=== PATIENT | male | born 1945 | race Caucasian/White ===

== ENCOUNTER → 2017-04-25 | Outpatient (CLI) | payer MEDICARE, OTHER ==
[2017-04-25 10:48] LABS: ANION GAP 12 (6-14); BLOOD UREA NITROGEN 41 mg/dL (8-26); CALCIUM 10.1 mg/dL (8.5-10.1); CARBON DIOXIDE 31 mmol/L (21-32); CHLORIDE 92 mmol/L (98-107); CREATININE 1.5 mg/dL (0.7-1.3); GFR 46.3; GLUCOSE 169 mg/dL (70-99); MAGNESIUM 1.9 mg/dL (1.8-2.4); POTASSIUM 3.4 mmol/L (3.5-5.1); SODIUM 135 mmol/L (136-145)
== END | disposition home or self-care (01) ==
LOC: LAB 09:44
DX: Z51.81 Encounter for therapeutic drug level monitoring (principal); Z79.01 Long term (current) use of anticoagulants
CPT/HCPCS: 36415; 80048; 83735; 84550

== ENCOUNTER → 2017-06-10 | Outpatient (CLI) | payer MEDICARE, OTHER ==
[2017-06-10 08:33] LABS: ANION GAP 11 (6-14); BLOOD UREA NITROGEN 40 mg/dL (8-26); CALCIUM 9.9 mg/dL (8.5-10.1); CARBON DIOXIDE 27 mmol/L (21-32); CHLORIDE 97 mmol/L (98-107); CREATININE 1.6 mg/dL (0.7-1.3); GFR 42.9; GLUCOSE 141 mg/dL (70-99); MAGNESIUM 2.1 mg/dL (1.8-2.4); POTASSIUM 3.6 mmol/L (3.5-5.1); SODIUM 135 mmol/L (136-145)
[2017-06-10 15:29] LABS: HEMOGLOBIN A1C 6.9 % (4.8-5.6)
== END | disposition home or self-care (01) ==
LOC: LAB 07:54
DX: E11.9 Type 2 diabetes mellitus without complications (principal); N18.9 Chronic kidney disease, unspecified; E87.6 Hypokalemia; M10.9 Gout, unspecified
CPT/HCPCS: 36415; 80048; 83036; 83735

== ENCOUNTER → 2017-10-25 | Outpatient (CLI) | payer MEDICARE | END | disposition home or self-care (01) | LOC: RAD 09:09 | DX: M48.07 Spinal stenosis, lumbosacral region (principal); E11.9 Type 2 diabetes mellitus without complications | CPT/HCPCS: 72100 ==

== ENCOUNTER → 2017-11-08 | Outpatient (CLI) | payer MEDICARE | END | disposition home or self-care (01) | LOC: RAD 13:19 | DX: J18.9 Pneumonia, unspecified organism (principal); J90 Pleural effusion, not elsewhere classified; E11.9 Type 2 diabetes mellitus without complications; N18.9 Chronic kidney disease, unspecified; I25.10 Atherosclerotic heart disease of native coronary artery without angina pectoris; E87.6 Hypokalemia; I48.0 Paroxysmal atrial fibrillation; Z79.01 Long term (current) use of anticoagulants | CPT/HCPCS: 71046 ==

== ENCOUNTER 2017-12-09 20:22 | Emergency (ER) | payer MEDICARE ==
[~2017-12-09] VITALS: Ht 180.3 cm; Wt 96.6 kg
[2017-12-09] MEDS ORDERED: IV NORMAL SALINE 1000ML BAG 1,000 ML IV SCH (20:53)
[2017-12-09] MEDS ORDERED: fentaNYL PF VIAL 100 MCG/2 ML VIAL IV PRN (21:00)
[2017-12-09 21:08] LABS: BASO % 0 % (0-3); EOS # 0.2 x10^3/uL (0.0-0.7); EOS % 1 % (0-3); HEMATOCRIT 50.7 % (39.0-53.0); HEMOGLOBIN 17.1 g/dL (13.0-17.5); LYMPH # 0.6 x10^3/uL (1.0-4.8); LYMPH % 5 % (24-48); MEAN CORPUSCULAR HEMOGLOBIN 32 pg (25-35); MEAN CORPUSCULAR HGB CONC 34 g/dL (31-37); MEAN CORPUSCULAR VOLUME 95 fL (79-100); MONO # 1.1 x10^3/uL (0.0-1.1); MONO % 10 % (0-9); NEUT # 9.8 x10^3uL (1.8-7.7); NEUT % 84 % (31-73); PLATELET COUNT 287 x10^3/uL (140-400); RED BLOOD COUNT 5.32 x10^6/uL (4.30-5.70); RED CELL DISTRIBUTION WIDTH 15.2 % (11.5-14.5); WHITE BLOOD COUNT 11.7 x10^3/uL (4.0-11.0)
[2017-12-09 21:21] LABS: CREATININE 1.3 mg/dL (0.7-1.3); GFR 54.6; POTASSIUM 3.5 mmol/L (3.5-5.1)
--- NOTE | 2017-12-09 21:23 | PHYS DOC ---
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 Patient states that he was not able to see anything out of his eye yesterday. He continues to have complete loss of vision from that eye. He was seen by his primary provider yesterday and again today and his primary provider had done a CT scan and had sent patient here for treatment of preseptal cellulitis. Patient indicates that symptoms started initially on Tuesday and thought that he had pinkeye. He states that yesterday was the first day that he had noted loss of vision. Patient rates his pain to be an 8 out of 10. He denies any fever, nausea or vomiting. He states that he was started on oral antibiotics a few days ago for what was thought to be a sinus infection. Review of Systems Review of Systems Constitutional: Denies fever or chills [] Eyes: Reports right eye pain, redness and complete loss of vision of right eye[] HENT: Complains of sinus pain and drainage[] Respiratory: Denies shortness of breath [] Cardiovascular: Denies chest pain[] GI: Denies abdominal pain, nausea, vomiting or diarrhea [] Integument: Complains of redness and swelling around right periorbital tissues.[ ] Neurologic: Complains of headache[] All other systems were reviewed and found to be within normal limits, except as documented in this note. Current Medications Current Medications Current Medications Medications (Trade) Dose Ordered Sig/Bogdan Start Time Stop Time Status Last Admin Dose Admin Fentanyl Citrate (Fentanyl 2ml Vial) 50 mcg PRN Q15MIN PRN 12/09/17 21:00 12/10/17 20:59 12/09/17 21:13 50 MCG Levofloxacin/ Dextrose 150 ml @ 100 mls/hr 1X ONCE 12/09/17 21:15 12/09/17 22:44 12/09/17 21:14 100 MLS/HR Sodium Chloride 1,000 ml @ 100 mls/hr Q10H 12/09/17 20:53 12/10/17 06:52 12/09/17 21:10 100 MLS/HR Allergies Allergies Allergies Coded Allergies Type Severity Reaction Last Updated Verified No Known Drug Allergies 04/14/14 No Physical Exam Physical Exam Constitutional: Well developed, well nourished, in mild distress, non-toxic appearance. [] HENT: Normocephalic, atraumatic, bilateral external ears normal, oropharynx moist, no oral exudates, nose normal. [] Eyes: There is periorbital soft tissue swelling around the right eye with erythema. There is slight proptosis noted. Examination of the eye demonstrates significant mucosal edema and redness of the sclera and area of cornea demonstrates swelling and almost complete white out. Unable to definitively identify the pupil. [] Neck: Normal range of motion, no tenderness, supple, no stridor. [] Cardiovascular:Heart rate regular rhythm [] Lungs & Thorax: Bilateral breath sounds clear to auscultation [] Abdomen: Bowel sounds normal, soft. [] Skin: There is erythema and soft tissue swelling around the periorbital tissues of the right eye. [] Extremities: No tenderness, no cyanosis, no clubbing, with lower extremity edema noted bilaterally. [] Neurologic: Alert and oriented X 3. [] Current Patient Data Vital Signs Vital Signs Date Time Temp Pulse Resp B/P (MAP) Pulse Ox O2 Delivery O2 Flow Rate FiO2 12/09/17 21:13 15 95 Room Air 12/09/17 20:22 98.2 67 136/70 (92) 98.2 Lab Values Laboratory Tests Test 12/09/17 20:53 White Blood Count 11.7 x10^3/uL (4.0-11.0) H Red Blood Count 5.32 x10^6/uL (4.30-5.70) Hemoglobin 17.1 g/dL (13.0-17.5) Hematocrit 50.7 % (39.0-53.0) Mean Corpuscular Volume 95 fL (79-100) Mean Corpuscular Hemoglobin 32 pg (25-35) Mean Corpuscular Hemoglobin Concent 34 g/dL (31-37) Red Cell Distribution Width 15.2 % (11.5-14.5) H Platelet Count 287 x10^3/uL (140-400) Neutrophils (%) (Auto) 84 % (31-73) H Lymphocytes (%) (Auto) 5 % (24-48) L Monocytes (%) (Auto) 10 % (0-9) H Eosinophils (%) (Auto) 1 % (0-3) Basophils (%) (Auto) 0 % (0-3) Neutrophils # (Auto) 9.8 x10^3uL (1.8-7.7) H Lymphocytes # (Auto) 0.6 x10^3/uL (1.0-4.8) L Monocytes # (Auto) 1.1 x10^3/uL (0.0-1.1) Eosinophils # (Auto) 0.2 x10^3/uL (0.0-0.7) Basophils # (Auto) 0.0 x10^3/uL (0.0-0.2) Platelet Estimate Pending Sodium Level 135 mmol/L (136-145) L Potassium Level 3.5 mmol/L (3.5-5.1) Chloride Level 101 mmol/L (98-107) Carbon Dioxide Level 28 mmol/L (21-32) Anion Gap 6 (6-14) Blood Urea Nitrogen 31 mg/dL (8-26) H Creatinine 1.3 mg/dL (0.7-1.3) Estimated GFR (Cockcroft-Gault) 54.6 BUN/Creatinine Ratio 24 (6-20) H Glucose Level 65 mg/dL (70-99) L Calcium Level 9.0 mg/dL (8.5-10.1) Total Bilirubin 0.4 mg/dL (0.2-1.0) Aspartate Amino Transferase (AST) 25 U/L (15-37) Alanine Aminotransferase (ALT) 21 U/L (16-63) Alkaline Phosphatase 98 U/L (46-116) Total Protein 7.1 g/dL (6.4-8.2) Albumin 3.0 g/dL (3.4-5.0) L Albumin/Globulin Ratio 0.7 (1.0-1.7) L Laboratory Tests 12/09/17 20:53 Laboratory Tests 12/09/17 20:53 EKG EKG [] Radiology/Procedures Radiology/Procedures [] Course & Med Decision Making Course & Med Decision Making Pertinent Labs and Imaging studies reviewed. (See chart for details) Patient's case was discussed with Dr. Pickering, on-call for ophthalmology. He is recommending transfer to . transfer Center was contacted and patient is being accepted by Dr. Pierre, with ophthalmology service. Roberta Disclaimer Dragon Disclaimer This electronic medical record was generated, in whole or in part, using a voice recognition dictation system. Departure Departure Impression: Primary Impression: Endophthalmitis, right eye Disposition: 02 TRANSFER [facility] Condition: GUARDED Referrals: KASSANDRA LLAMAS DO (PCP) VALERY ROGERS Jr., DO Dec 09, 2017 21:23
[2017-12-09 21:26] LABS: ALBUMIN/GLOBULIN RATIO 0.7 (1.0-1.7); TOTAL BILIRUBIN 0.4 mg/dL (0.2-1.0); TOTAL PROTEIN 7.1 g/dL (6.4-8.2)
[2017-12-09 21:52] LABS: % EOS 2 % (0-5); % LYMPHS 12 % (24-48); % MONOS 5 % (0-10); % SEGS 81 % (35-66)
[2017-12-09 21:53] LABS: PLT ESTIMATE ADEQUATE (ADEQUATE)
[2017-12-09 22:00] VITALS: BP 121/70
[2017-12-09] MEDS ORDERED: DEXTROSE 50% 25 GM / 50ML DISP.SYRIN. IV ONE (22:00)
== END 2017-12-09 22:24 | disposition short-term general hospital (02) ==
LOC: ER 20:22
DX: H44.001 Unspecified purulent endophthalmitis, right eye (principal); R51 Headache; I48.91 Unspecified atrial fibrillation; E11.9 Type 2 diabetes mellitus without complications
CPT/HCPCS: 36415; 80053; 85007; 85025; 87040; 96365; 96375; 99285; J1956; J3010; J7030; J7042

== ENCOUNTER → 2017-12-09 | Outpatient (CLI) | payer MEDICARE ==
[2014-04-16 14:56] VITALS: BP 104/70
[~2017-12-09] MED LIST: DILT180C2 PO; FURO80TA72 PO; LEVO500T59 PO; POTA20TA12 PO
--- NOTE | 2017-12-09 16:43 | RAD ---
CT of the paranasal sinuses without contrast, 12/09/2017: HISTORY: Severe right facial pain and swelling Noncontrast scans were obtained with multiplanar reconstructions produced. There is mucosal thickening in the maxillary, ethmoid and sphenoid sinuses bilaterally. Air-fluid levels are present in both maxillary sinuses compatible with acute sinusitis. There is mild subcutaneous edema in the right cheek extending anteriorly over the right side. The absence of trauma, the appearance suggests nonspecific inflammation. No discrete fluid collection is seen to suggest abscess. The globes and orbital contents are otherwise unremarkable. IMPRESSION: 1. Moderate bilateral paranasal sinusitis with free fluid in both maxillary sinuses. 2. Mild subcutaneous edema over the right cheek extending along the anterior aspect of the right eye, compatible with preseptal cellulitis. PQRS Compliance Statement: One or more of the following individualized dose reduction techniques were utilized for this examination: 1. Automated exposure control 2. Adjustment of the mA and/or kV according to patient size 3. Use of iterative reconstruction technique Electronically signed by: Josue Park MD (12/09/2017 4:40 PM) [facility]
== END | disposition home or self-care (01) ==
LOC: CT 10:40
PROVIDERS: ATTEND Internal Medicine
DX: J32.8 Other chronic sinusitis (principal); E87.6 Hypokalemia; E11.22 Type 2 diabetes mellitus with diabetic chronic kidney disease; N18.9 Chronic kidney disease, unspecified; I48.0 Paroxysmal atrial fibrillation; I25.10 Atherosclerotic heart disease of native coronary artery without angina pectoris; R60.0 Localized edema
CPT/HCPCS: 70486

== ENCOUNTER 2018-06-11 21:42 | Emergency (ER) | payer MEDICARE ==
[~2018-06-11] VITALS: Ht 180.3 cm; Wt 96.6 kg
[2018-06-11 22:49] LABS: BILIRUBIN,URINE NEGATIVE (NEG); CLARITY,URINE CLEAR; COLOR,URINE YELLOW; NITRITE,URINE NEGATIVE (NEG); PROTEIN,URINE >=300 mg/dL (NEG-TRACE); UROBILINOGEN,URINE 0.2 mg/dL (0.2 mg/dL)
--- NOTE | 2018-06-11 22:55 | PHYS DOC ---
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 Pt states he was seen by his PCP last and diagnosed with a UTI. He was prescribed cipro and pyridium. Pt states today he noticed that only small amounts of urine were draining with urination. PT reports urgency, frequency, and continued burning with urination. He denies any fever, nausea, vomiting, or diarrhea. He denies any back pain. He denies any irregular penile discharge or testicular pain. Pt states his abdomen feels distended. (ADRIANA MCINTYRE APRN) Review of Systems Review of Systems Constitutional: Denies fever or chills [] HENT: Denies nasal congestion or sore throat [] Respiratory: Denies cough or shortness of breath [] Cardiovascular: No additional information not addressed in HPI [] GI: Denies abdominal pain, nausea, vomiting, or diarrhea; see HPI : See HPI Musculoskeletal: Denies back pain or joint pain [] Integument: Denies rash or skin lesions [] Neurologic: Denies headache, focal weakness or sensory changes [] Endocrine: reports blood sugars around 120 and polyuria complete systems were reviewed and found to be within normal limits, except as documented in this note. (ADRIANA MCINTYRE APRN) Current Medications Current Medications Current Medications Medications (Trade) Dose Ordered Sig/Bogdan Start Time Stop Time Status Last Admin Dose Admin Oxybutynin Chloride (Ditropan) 5 mg 1X ONCE 06/12/18 00:00 06/12/18 00:01 DC 06/12/18 00:09 5 MG Potassium Chloride (Klor-Con) 40 meq 1X ONCE 06/12/18 00:00 06/12/18 00:01 DC 06/12/18 00:09 40 MEQ (KAREY MCCABE MD) Allergies Allergies Allergies Coded Allergies Type Severity Reaction Last Updated Verified No Known Drug Allergies 04/14/14 No (KAREY MCCABE MD) Physical Exam Physical Exam Constitutional: Well developed, well nourished, no acute distress, non-toxic appearance. [] HENT: Normocephalic, atraumatic, bilateral external ears normal, nose normal. [] Eyes: PERRLA, conjunctiva normal, no discharge. [] Neck: Normal range of motion, no stridor. [] Cardiovascular:Heart rate regular rhythm, no murmur coarse in all maxwell, no increased work of breathing or retractions [] Abdomen: Bowel sounds normal, soft, no tenderness, no masses, no pulsatile masses. [] Skin: Warm, dry, no erythema, no rash. [] Back: No CVA tenderness. [] Extremities: No cyanosis, ROM intact, Neurologic: Alert and oriented X 3, normal motor function, normal sensory function, no focal deficits noted. [] Psychologic: Affect normal, judgement normal, mood normal. [] (ADRIANA MCINTYRE APRN) Current Patient Data Vital Signs Vital Signs Date Time Temp Pulse Resp B/P (MAP) Pulse Ox O2 Delivery O2 Flow Rate FiO2 06/11/18 23:30 80 18 06/11/18 23:00 92 06/11/18 22:00 98.2 120/86 (97) Room Air 98.2 (KAREY MCCABE MD) Lab Values Laboratory Tests Test 06/11/18 22:20 06/11/18 23:11 Urine Collection Type Unknown Urine Color Yellow Urine Clarity Clear Urine pH 6.0 Urine Specific Painter 1.025 Urine Protein >=300 mg/dL (NEG-TRACE) Urine Glucose (UA) >=1000 mg/dL (NEG) Urine Ketones (Stick) Negative mg/dL (NEG) Urine Blood Large (NEG) Urine Nitrite Negative (NEG) Urine Bilirubin Negative (NEG) Urine Urobilinogen Dipstick 0.2 mg/dL (0.2 mg/dL) Urine Leukocyte Esterase Negative (NEG) Urine RBC 20-40 /HPF (0-2) Urine WBC 5-10 /HPF (0-4) Urine Squamous Epithelial Cells Few /LPF Urine Bacteria 0 /HPF (0-FEW) Urine Hyaline Casts Occasional /HPF Urine Mucus Slight /LPF White Blood Count 11.2 x10^3/uL (4.0-11.0) H Red Blood Count 5.61 x10^6/uL (4.30-5.70) Hemoglobin 17.6 g/dL (13.0-17.5) H Hematocrit 52.4 % (39.0-53.0) Mean Corpuscular Volume 93 fL (79-100) Mean Corpuscular Hemoglobin 31 pg (25-35) Mean Corpuscular Hemoglobin Concent 34 g/dL (31-37) Red Cell Distribution Width 15.4 % (11.5-14.5) H Platelet Count 287 x10^3/uL (140-400) Neutrophils (%) (Auto) 78 % (31-73) H Lymphocytes (%) (Auto) 7 % (24-48) L Monocytes (%) (Auto) 11 % (0-9) H Eosinophils (%) (Auto) 3 % (0-3) Basophils (%) (Auto) 1 % (0-3) Neutrophils # (Auto) 8.8 x10^3uL (1.8-7.7) H Lymphocytes # (Auto) 0.8 x10^3/uL (1.0-4.8) L Monocytes # (Auto) 1.2 x10^3/uL (0.0-1.1) H Eosinophils # (Auto) 0.4 x10^3/uL (0.0-0.7) Basophils # (Auto) 0.1 x10^3/uL (0.0-0.2) Sodium Level 139 mmol/L (136-145) Potassium Level 2.8 mmol/L (3.5-5.1) *L Chloride Level 99 mmol/L (98-107) Carbon Dioxide Level 33 mmol/L (21-32) H Anion Gap 7 (6-14) Blood Urea Nitrogen 29 mg/dL (8-26) H Creatinine 1.2 mg/dL (0.7-1.3) Estimated GFR (Cockcroft-Gault) 59.7 BUN/Creatinine Ratio 24 (6-20) H Glucose Level 139 mg/dL (70-99) H Calcium Level 8.8 mg/dL (8.5-10.1) Total Bilirubin 0.5 mg/dL (0.2-1.0) Aspartate Amino Transferase (AST) 16 U/L (15-37) Alanine Aminotransferase (ALT) 16 U/L (16-63) Alkaline Phosphatase 116 U/L (46-116) Total Protein 6.9 g/dL (6.4-8.2) Albumin 2.8 g/dL (3.4-5.0) L Albumin/Globulin Ratio 0.7 (1.0-1.7) L Laboratory Tests 06/11/18 23:11 Laboratory Tests 06/11/18 23:11 (KAREY MCCABE MD) Lab Values Laboratory Tests Test 06/11/18 22:20 06/11/18 23:11 Urine Collection Type Unknown Urine Color Yellow Urine Clarity Clear Urine pH 6.0 Urine Specific Painter 1.025 Urine Protein >=300 mg/dL (NEG-TRACE) Urine Glucose (UA) >=1000 mg/dL (NEG) Urine Ketones (Stick) Negative mg/dL (NEG) Urine Blood Large (NEG) Urine Nitrite Negative (NEG) Urine Bilirubin Negative (NEG) Urine Urobilinogen Dipstick 0.2 mg/dL (0.2 mg/dL) Urine Leukocyte Esterase Negative (NEG) Urine RBC 20-40 /HPF (0-2) Urine WBC 5-10 /HPF (0-4) Urine Squamous Epithelial Cells Few /LPF Urine Bacteria 0 /HPF (0-FEW) Urine Hyaline Casts Occasional /HPF Urine Mucus Slight /LPF White Blood Count 11.2 x10^3/uL (4.0-11.0) H Red Blood Count 5.61 x10^6/uL (4.30-5.70) Hemoglobin 17.6 g/dL (13.0-17.5) H Hematocrit 52.4 % (39.0-53.0) Mean Corpuscular Volume 93 fL (79-100) Mean Corpuscular Hemoglobin 31 pg (25-35) Mean Corpuscular Hemoglobin Concent 34 g/dL (31-37) Red Cell Distribution Width 15.4 % (11.5-14.5) H Platelet Count 287 x10^3/uL (140-400) Neutrophils (%) (Auto) 78 % (31-73) H Lymphocytes (%) (Auto) 7 % (24-48) L Monocytes (%) (Auto) 11 % (0-9) H Eosinophils (%) (Auto) 3 % (0-3) Basophils (%) (Auto) 1 % (0-3) Neutrophils # (Auto) 8.8 x10^3uL (1.8-7.7) H Lymphocytes # (Auto) 0.8 x10^3/uL (1.0-4.8) L Monocytes # (Auto) 1.2 x10^3/uL (0.0-1.1) H Eosinophils # (Auto) 0.4 x10^3/uL (0.0-0.7) Basophils # (Auto) 0.1 x10^3/uL (0.0-0.2) Sodium Level 139 mmol/L (136-145) Potassium Level 2.8 mmol/L (3.5-5.1) *L Chloride Level 99 mmol/L (98-107) Carbon Dioxide Level 33 mmol/L (21-32) H Anion Gap 7 (6-14) Blood Urea Nitrogen 29 mg/dL (8-26) H Creatinine 1.2 mg/dL (0.7-1.3) Estimated GFR (Cockcroft-Gault) 59.7 BUN/Creatinine Ratio 24 (6-20) H Glucose Level 139 mg/dL (70-99) H Calcium Level 8.8 mg/dL (8.5-10.1) Total Bilirubin 0.5 mg/dL (0.2-1.0) Aspartate Amino Transferase (AST) 16 U/L (15-37) Alanine Aminotransferase (ALT) 16 U/L (16-63) Alkaline Phosphatase 116 U/L (46-116) Total Protein 6.9 g/dL (6.4-8.2) Albumin 2.8 g/dL (3.4-5.0) L Albumin/Globulin Ratio 0.7 (1.0-1.7) L Laboratory Tests 06/11/18 23:11 Laboratory Tests 06/11/18 23:11 (ADRIANA MCINTYRE APRN) EKG EKG [] (ADRIANA MCINTYRE APRN) Radiology/Procedures Radiology/Procedures post void residual 112 ml[] (ADRIANA MCINTYRE APRN) Course & Med Decision Making Course & Med Decision Making Pertinent Labs and Imaging studies reviewed. (See chart for details) [] (ADRIANA MCINTYRE APRN) Course & Med Decision Making Staff Physician Addendum: I was working in the ER during the course of this patient's visit. I was available for consultation as needed, but I was not directly involved in the care of this patient. bladder scan 111 (KAREY MCCABE MD) Dragon Disclaimer Dragon Disclaimer This electronic medical record was generated, in whole or in part, using a voice recognition dictation system. (ADRIANA MCINTYRE APRN) Departure Departure Impression: Primary Impression: UTI (urinary tract infection) Additional Impressions: Dysuria Hypokalemia Disposition: HOME, SELF-CARE Condition: STABLE Referrals: KASSANDRA LLAMAS DO (PCP) Patient Instructions: Hypokalemia-Brief, Urinary Tract Infection, [id number] Additional Instructions: Fill prescription(s) and use as directed. Avoid bladder irritants such as caffeine, carbonation, and spicy foods. Increase clear fluids. Take your potassium as prescribed, today it was 2.8 in the ER. Follow up with your primary care doctor this week for recheck of your Potassium, return to the ER if symptoms worsen. Scripts Oxybutynin Chloride (DITROPAN XL) 5 Mg Tab.er.24 1 TAB PO DAILY for 14 Days, #14 TAB 0 Refills Prov: ADRIANA MCINTYRE APRN 06/12/18 Problem Qualifiers Primary Impression: UTI (urinary tract infection) Urinary tract infection type: site unspecified Hematuria presence: with hematuria Qualified Codes: N39.0 - Urinary tract infection, site not specified ; R31.9 - Hematuria, unspecified ADRIANA MCINTYRE APRN Jun 11, 2018 22:55 KAREY MCCABE MD Jun 12, 2018 03:42
[2018-06-11 23:03] LABS: RBC,URINE 20-40 /HPF (0-2)
[2018-06-11 23:04] LABS: BACTERIA,URINE 0 /HPF (0-FEW); HYALINE CASTS, URINE OCCASIONAL /HPF; SQUAMOUS EPITHELIAL CELL,UR FEW /LPF
[2018-06-11 23:22] LABS: BASO # 0.1 x10^3/uL (0.0-0.2); BASO % 1 % (0-3); EOS # 0.4 x10^3/uL (0.0-0.7); EOS % 3 % (0-3); HEMATOCRIT 52.4 % (39.0-53.0); HEMOGLOBIN 17.6 g/dL (13.0-17.5); LYMPH # 0.8 x10^3/uL (1.0-4.8); LYMPH % 7 % (24-48); MEAN CORPUSCULAR HEMOGLOBIN 31 pg (25-35); MEAN CORPUSCULAR HGB CONC 34 g/dL (31-37); MEAN CORPUSCULAR VOLUME 93 fL (79-100); MONO # 1.2 x10^3/uL (0.0-1.1); MONO % 11 % (0-9); NEUT # 8.8 x10^3uL (1.8-7.7); NEUT % 78 % (31-73); PLATELET COUNT 287 x10^3/uL (140-400); RED BLOOD COUNT 5.61 x10^6/uL (4.30-5.70); RED CELL DISTRIBUTION WIDTH 15.4 % (11.5-14.5); WHITE BLOOD COUNT 11.2 x10^3/uL (4.0-11.0)
[2018-06-11 23:30] VITALS: BP 133/65
[2018-06-11 23:36] LABS: ALBUMIN 2.8 g/dL (3.4-5.0); ALBUMIN/GLOBULIN RATIO 0.7 (1.0-1.7); CALCIUM 8.8 mg/dL (8.5-10.1); CREATININE 1.2 mg/dL (0.7-1.3); GFR 59.7; TOTAL BILIRUBIN 0.5 mg/dL (0.2-1.0); TOTAL PROTEIN 6.9 g/dL (6.4-8.2)
[2018-06-11 23:38] LABS: POTASSIUM 2.8 mmol/L (3.5-5.1)
[2018-06-12] MEDS ORDERED: OXYBUTYNIN CHLORIDE 5 MG TABLET PO ONE
[2018-06-12] MEDS ORDERED: POTASSIUM CHLORIDE 20 MEQ TABLET.ER. PO ONE
[2018-06-12] MEDS ORDERED: OXYB5TAB33 PO (00:02)
== END 2018-06-12 00:15 | disposition home or self-care (01) ==
LOC: ER 21:42
DX: N39.0 Urinary tract infection, site not specified (principal); E87.6 Hypokalemia; I48.91 Unspecified atrial fibrillation; E11.9 Type 2 diabetes mellitus without complications; Z90.49 Acquired absence of other specified parts of digestive tract
CPT/HCPCS: 36415; 80053; 81001; 85025; 87086; 99283

== ENCOUNTER → 2019-01-26 | Outpatient (CLI) | payer MEDICARE ==
[~2019-01-26] MED LIST changes: +OXYB5TAB33 PO
--- NOTE | 2019-01-26 15:16 | RAD ---
EXAM: CT Chest without IV contrast CLINICAL HISTORY: Pleural effusion, infiltrates COMPARISON: 02/12/2016 TECHNIQUE: CT of the chest without intravenous contrast. Axial, coronal and sagittal reformatted images were generated. ---PQRS compliance statement - One or more of the following individualized dose reduction techniques were utilized for this study: 1. Automated exposure control 2. Adjustment of the mA and/or kV according to patient size 3. Use of iterative reconstruction technique--- FINDINGS: Lack of intravenous contrast limits evaluation of solid organs, vasculature, and lymph nodes. Chest: Heart is not enlarged. No pericardial effusion. Small left pleural effusion. Moderate right pleural effusion. No pneumothorax. Linear opacities in the left lingula and lower lobe likely scarring/atelectasis. 4 mm right upper lobe lung nodule (series 2 image 16) is stable to 02/12/2016. 8mm pleural-based lung nodule in the lingula (series 3 image 32) is seen. Bilateral gynecomastia. No mediastinal or hilar lymphadenopathy. No axillary lymphadenopathy. Visualized Upper abdomen: Cholecystectomy clips are seen. Left upper pole renal cystic lesion is noted. Bones: Degenerative changes of the spine are seen. IMPRESSION: 1. Bilateral pleural effusions are again seen, in general grossly stable. 2. A new 8 mm pleural-based lingular lung nodule is seen. This may represent a focus of round atelectasis given the associated pleural-based abnormalities. However follow-up CT in 3 months is recommended to ensure stability. Electronically signed by: James Ibrahim MD (01/26/2019 3:12 PM) [facility]
== END | disposition home or self-care (01) ==
LOC: CT 14:50
PROVIDERS: ATTEND Internal Medicine
DX: J90 Pleural effusion, not elsewhere classified (principal); R91.8 Other nonspecific abnormal finding of lung field; N62 Hypertrophy of breast; M47.814 Spondylosis without myelopathy or radiculopathy, thoracic region
CPT/HCPCS: 71250